=== PATIENT | male | born 1960 | race Caucasian/White ===

== ENCOUNTER 2021-10-20 16:05 | Emergency (ER) | payer OTHER ==
[~2021-10-20] VITALS: Ht 177.8 cm; Wt 136.8 kg
[~2021-10-20 16:05] MED LIST: OXY-IR 5MG5 MG PO; XARELTO10 MG PO
[2021-10-20 17:06] LABS: BASOPHIL 0.4 % (0-2); EOSINOPHIL 0.4 % (0-5); HCT 44.8 % (42.0-52.0); HGB 15.7 g/dl (13.2-18.0); LYMPHOCYTE 11.3 % (15-48); MCH 33.1 pg (25.0-31.0); MCV 94.3 fL (78.0-100.0); MONOCYTE 6.2 % (0-12); MPV 11.9 fL (6.0-9.5); NEUTROPHIL 81.3 % (41-80); NRBC 0; PLT 133 K/uL (150-400); RBC 4.75 M/uL (4.70-6.00); RDW 13.2 % (11.5-14.0); WBC 14.3 K/uL (4.0-10.5)
[2021-10-20 17:09] LABS: INR 1.11 (0.9-1.2); PROTHROMBIN TIME 13.7 SECONDS (11.8-13.4); PTT 28.2 SECONDS (24.4-34.7)
[2021-10-20 17:18] LABS: ALBUMIN 3.3 g/dL (3.4-5.0); BILIRUBIN - TOTAL 1.1 mg/dL (0.2-1.0); C-REACTIVE PROTEIN 2.6 mg/dL (<=0.90); CREATININE 0.8 mg/dL (0.67-1.17); GLOBULIN (CALCULATION) 4.2 g/dL; MAGNESIUM 1.9 mg/dL (1.8-2.4); POTASSIUM 4.1 mmol/L (3.5-5.1); TOTAL PROTEIN 7.5 g/dL (6.4-8.2)
[2021-10-20 17:24] LABS: D-DIMER 13.94 ug/mLFEU (0.00-0.41)
== END 2021-10-20 18:49 | disposition other institution (70) ==
LOC: FER 16:05
PROVIDERS: Emergency Medicine
DX: I26.92 Saddle embolus of pulmonary artery without acute cor pulmonale (principal); I51.9 Heart disease, unspecified; Z87.891 Personal history of nicotine dependence; Z91.013 Allergy to seafood
CPT/HCPCS: 36415; 71275; 80053; 83605; 83615; 83735; 83880; 84145; 84484; 85025; 85379; 85610; 85730; 86140; 93005; J1644; Q9967